=== PATIENT | male | born 1965 | race Caucasian/White ===

== ENCOUNTER → 2024-03-19 16:44 | Outpatient (REF) | payer BC, SELFPAY | LOC: REG 16:44 | PROVIDERS: ATTENDING PHYSICIAN Nurse Practitioner Adult Health; FAMILY PHYSICIAN Family Medicine | DX: M25.561 Pain in right knee (principal) | CPT/HCPCS: 73564 ==

== ENCOUNTER 2024-07-08 23:17 | Emergency (ER) | payer BC, SELFPAY ==
[2024-07-08 23:17] VITALS: BMI 34.5
[2024-07-08 23:20] VITALS: BP 184/118
[2024-07-09] LABS: Hematocrit 39.9 % (39.0-52.0); Hemoglobin 14.1 g/dL (13.0-18.0); Mean Corp Hgb Conc. 35.3 g/dL (33.0-37.0); Mean Corpuscular Hgb 30.2 pg (27.0-31.0); Mean Corpuscular Volume 85.4 fL (80.0-94.0); Platelet Count 161 10^3/uL (130-400); Red Blood Cell Count 4.67 10^6/uL (4.70-6.10); Red Cell Dist. Width 12.9 % (11.5-14.5); White Blood Cell Count 8.2 10^3/uL (4.8-10.8)
[2024-07-09 00:02] LABS: Urine Albumin 2+ (Neg - Trace); Urine Bilirubin Negative (Negative); Urine Character Slightly Cloudy (Clear); Urine Color Yellow; Urine Glucose Negative (Negative); Urine Ketone Negative (Negative); Urine Leukocyte 1+ (Negative); Urine Nitrite Negative (Negative); Urine Occult Blood 4+ (Negative); Urine Urobilinogen Negative (Neg - 1+)
[2024-07-09 00:08] LABS: Blood Urea Nitrogen 16 mg/dl (9-20); Calcium 9.5 mg/dl (8.4-10.2); Carbon Dioxide 26 mmol/L (22-30); Chloride 101 mmol/L (98-107); Glucose 132 mg/dl (70-99); Potassium 3.8 mmol/L (3.5-5.1); Sodium 140 mmol/L (135-145); eGFR > 60.00
[2024-07-09 00:21] VITALS: BP 179/99
[2024-07-09 00:30] VITALS: BP 157/97
[2024-07-09 00:35] LABS: Urine Red Blood Cell >100 /HPF (0-2)
[2024-07-09 00:40] LABS: Urine Bacteria Few (Negative)
[2024-07-09 01:00] VITALS: BP 153/92
--- NOTE | 2024-07-09 01:07 | ED.GENMED ---
History of Present Illness
General
Chief Complaint: Urinary Symptoms
Source: patient
Exam Limitations: none
Time Seen by Provider: 07/09/24 01:00
Nursing documentation reviewed up to this point in time: agreed with
History of Present Illness
History of Present Illness:
This is a 59-year-old gentleman with history of hyperlipidemia, maintained on a statin. He complains of gross hematuria that began shortly after dinner, has had 3 episodes of grossly bloody urine, initially just blood-tinged but then progressively
more bloody over the next 2 episodes he voided, most recently passing small clots. He denies dysuria, denies urinary frequency nor hesitancy and does not feel he has difficulty emptying his bladder.
He takes no anticoagulants.
No history of similar episodes in the past.
He does admit to mild back ache, denies abdominal pain, no fever nor chills.
Noted to have significantly elevated blood pressure and he reports history of 'whitecoat' syndrome with elevated blood pressure at doctor's offices but has never been formally diagnosed with hypertension and generally blood pressure normalizes upon
recheck.
Past History
Past History
ED Past Medical History: Hypercholesterolemia, Psychiatric (Anxiety during medical procedures/visits) and Other (Elevated blood pressure related to whitecoat syndrome)
ED Past Surgical History: Orthopedic (Right forearm compartment syndrome 1995)
Social History
Tobacco: Non-smoker
Alcohol: Occasional
Drug: None
Personal:
Living: with family
Employment: Employed ([employer], works for [employer])
Family History
Family History: Other (Noncontributory)
Phy Exam
Physical Exam
Physical Exam:
GENERAL: 59-year-old overweight gentleman appears his stated age, bright and alert, pleasant, appears in no acute distress. Significant hypertension noted initially, has improved to 153/92
EYE: anicteric
NECK: Supple, nontender, no meningismus, no significant adenopathy.
ENT: oral mucosa is moist. No rhinorrhea.
CARDIAC: Regular rate and rhythm. no murmur.
LUNGS: Clear breath sounds bilaterally, no acute respiratory distress, no wheezes/rales/rhonchi
ABDOMEN: Soft, nondistended, without focal tenderness, no r/g, no cvat. normoactive BS. No palpable masses.
NEUROLOGICAL: Alert and oriented x3, no focal neuro deficits. Gait is zamora and steady.
SKIN: Warm and dry, normal color, skin intact. No rash.
MUSCULOSKELETAL: No C/C/E. peripheral pulses are full and equal b/l. No palpable tenderness.
PSYCH: Normal and appropriate interaction.
Course
Orders/Labs/Results
Orders:
Orders
07/08/24 23:35
Basic Metabolic Panel Urgent
Complete Blood Count/No Diff Urgent
Urinalysis Urgent
Date Specimen was Collected: 07/08/24
Time Specimen was Collected: 23:23
Urine Microscopic Urgent
Date Specimen was Collected: 07/08/24
Time Specimen was Collected: 23:23
Urine Culture Urgent
JUAN Source: U
Specimen Description:
Date Specimen was Collected: 07/08/24
Time Specimen was Collected: 23:23
Comment: ADD ON
07/09/24 01:07
CT Abd/pelvis W Iv Cont Urgent
Comment:
Reason For Exam: acute gross hematuria; mild back pain
07/09/24 03:37
Add On - Microbiology Urgent
Tests Added?: urine c/s
Abnormal Lab Results
07/08/24
23:35
RBC 4.67 L 10^6/uL
(4.70-6.10)
MPV 11.0 H fL
(7.4-10.4)
Glucose 132 H mg/dl
(70-99)
Urine Occult Blood 4+ A
(Negative)
Ur Leukocyte Esterase 1+ A
(Negative)
Urine RBC >100 A /HPF
(0-2)
Urine Bacteria Few A
(Negative)
Urine Albumin 2+ A
(Neg - Trace)
07/08/24 23:35
07/08/24 23:35
Vital Signs
Initial and Last Documented VS:
Initial Vital Signs
Temp Pulse Resp BP Pulse Ox
97.8 F 120 24 184/118 100
07/08/24 23:20 07/08/24 23:20 07/08/24 23:20 07/08/24 23:20 07/08/24 23:20
Last Documented Vital Signs
Temp Pulse Resp BP Pulse Ox
97.8 F 96 15 157/99 69
07/08/24 23:20 07/09/24 01:00 07/09/24 01:00 07/09/24 03:23 07/09/24 01:23
MDM/Problems Addressed
Differential Diagnosis Includes:
Acute gross hematuria, concern for UTI, ureteric stone, other consideration is renal mass/bladder mass.
Thus far labs are unremarkable with normal CBC, unremarkable chemistries�normal renal function.
Urinalysis reported as yellow, slightly cloudy, greater than 100 RBCs, 3-5 WBCs, few bacteria. Not convincing for UTI.
Will check CT abdomen and pelvis.
*Radiology
Radiology exam reviewed: radiology read reviewed
*Pulse Oximetry
Patient hypoxic: no
*Critical Care Note
Total Time (30-74mins, 75-104mins- exclusive of procedures): Not Applicable
Update Note
Update Note:
03:30
Patient continues to feel well. Voiding well.
CAT scan concerning for a mass at the right bladder base measuring 1.5 x 1.6 cm, polypoid lesion in nature. There is no sign of obstruction. Kidneys are unremarkable.
Discussed finding with patient and recommend to follow-up with urology for further evaluation.
Urinalysis is not suspicious for UTI but I have sent a urine culture for completeness sake.
Discussed importance of remaining well-hydrated on a daily basis.
He continues with moderate hypertension and recommend he follow-up with PCP as well. Alternatively monitor his blood pressure at home.
ED Attending Note
-
Portions of this chart may have been created with voice recognition software.� Occasional wrong word or��sound alike� substitutions may have occurred due to the inherent limitations of voice recognition software.
Discharge Plan
Departure
Patient Disposition: Home (Routine Discharge)
Date of Disposition: 07/09/24
Time of Disposition: 03:35
Patient with high blood pressure during this ER visit?: Yes
Condition: Good
Discharge Problem:
Gross hematuria, Bladder mass
Instructions: Blood in Urine (Hematuria), Adult ED, BLOOD PRESSURE
Prescriptions:
No Action
gentamicin [Gentak] 0.3 % drops
1 drp LEFT EYE Q2H Qty: 1 0RF
Rx Instructions:
for 2 days while awake then every 4 hours for 5 days
hydrocodone-acetaminophen 5 MG/500 MG tablet
1 tab PO .Q4-6HPRN PRN (Reason: PAIN) Qty: 20 0RF
Referrals:
Essie Clayton MD [Family Provider] -
Juan Alcala MD [Active] - Call in 1-3 days for appt
Interventions
Interventions:
*Risk Screen - Suicide Last Done: 07/08/24 23:20
*General Assessment Last Done: 07/09/24 03:46
*Neglect/Abuse Screening Last Done: 07/08/24 23:20
*ED- Fall Risk Assessment Last Done: 07/09/24 03:46
*ED COVID-19 Vaccine History Last Done: 07/09/24 03:46
*Nursing Disposition Last Done: 07/09/24 03:46
ED-Male Genitourinary Assessment Last Done: 07/09/24 00:30
Discharge Date and Time
Discharge Date/Time: 07/09/24 03:48
Print Language: MALAY
[2024-07-09 03:23] VITALS: BP 157/99
== END 2024-07-09 03:48 | disposition home or self-care (01) ==
LOC: EMR 23:17
PROVIDERS: EMERGENCY PHYSICIAN Emergency Medicine; FAMILY PHYSICIAN Family Medicine
DX: N32.9 Bladder disorder, unspecified (principal); R31.0 Gross hematuria; E78.00 Pure hypercholesterolemia, unspecified; R03.0 Elevated blood-pressure reading, without diagnosis of hypertension
CPT/HCPCS: 99284; 74177; 80048; 81003; 81015; 85027; 87086; Q9967

== ENCOUNTER 2024-07-24 06:20 | Day surgery (SDC) | payer BC, SELFPAY ==
[2024-07-19 14:06] VITALS: BMI 24.9
[2024-07-24 11:23] VITALS: BMI 24.9
[2024-07-24 11:24] VITALS: BP 137/96
[2024-07-24] MEDS: CYSVIEW KIT 100 MG INTRAVES (11:40)
[2024-07-24] MEDS: NORMOSOL-R/PLASMALYTE-A 1000 IV (11:45)
[2024-07-24 17:10] VITALS: BP 121/99; BP 137/96
[2024-07-24] MEDS: SYRINGE NON-PUMP 50 ML IRRIG ×2 (17:14→17:17)
[2024-07-24] MEDS: SYRINGE NON-PUMP 50 MG IRRIG ×2 (17:14→17:17)
[2024-07-24] MEDS: VALIUM INJECTION 5 MG IV (17:29)
[2024-07-24] MEDS: DETROL LA 4 MG PO (18:01)
[2024-07-24] MEDS: Pyridium 200 MG PO (18:01)
[2024-07-24 18:20] VITALS: BP 146/87
[2024-07-24] MEDS: TORADOL 30 MG IV (18:42)
[2024-07-24 19:00] VITALS: BP 168/97
[2024-07-24 19:45] VITALS: BP 138/102
== END 2024-07-24 19:50 | disposition home or self-care (01) ==
LOC: SDS 06:20
PROVIDERS: ATTENDING PHYSICIAN Specialist; FAMILY PHYSICIAN Family Medicine
DX: C67.9 Malignant neoplasm of bladder, unspecified (principal); R31.0 Gross hematuria
CPT/HCPCS: 52235; 88305; 88307; 36415; 93005; A9589; J9201

== ENCOUNTER 2024-07-25 04:10 | Observation (INO) | payer BC, SELFPAY ==
--- NOTE | 2024-07-24 23:52 | ED.GENMED ---
History of Present Illness
General
Chief Complaint: Post Operative Problem(s)
Source: patient
Exam Limitations: none
Time Seen by Provider: 07/24/24 23:20
Nursing documentation reviewed up to this point in time: agreed with
History of Present Illness
History of Present Illness:
59-year-old male presents to the emergency department with increased pain, chills status post polypectomy of his bladder today. Patient was diagnosed with a polyp approximately 2 weeks ago. Had the polypectomy today and was discharged around [address] Alcala had offered to keep patient in the hospital but he chose to go home. Scarcely 2 hours later, he developed increased pain with the chills. They called Dr. Robles, the urologist on-call who advised him to come to the emergency
department for CAT scan.
Past History
Past History
ED Past Medical History: Hypercholesterolemia, Psychiatric (Anxiety during medical procedures/visits) and Other (Elevated blood pressure related to whitecoat syndrome)
ED Past Surgical History: Orthopedic (Right forearm compartment syndrome 1995)
Social History
Tobacco: Non-smoker
Alcohol: Occasional
Drug: None
Personal:
Living: with family
Employment: Employed (Air Conditioning Installer, works for [employer])
Family History
Family History: Other (Noncontributory)
Phy Exam
General Physical Exam
General Presentation: moderate distress and mild distress
General age: appears stated age
General Skin: warm and dry
General Habitus: normal
General Mental: alert
General Hydration: appears well hydrated
General Chronic Disability: urinary catheter (Contains chemotherapeutics)
Cardiovascular Exam
Cardiovascular Exam: regular rate/rhythm and no edema
Pulmonary Exam
Pulmonary Exam: lungs clear and no respiratory distress
Gastrointestinal Exam
Gastrointestinal Exam: normal bowel sounds, non tender and soft
Musculoskeletal Exam
Musculoskeletal Exam: full ROM
Skin Exam
Skin Exam: normal color and warm/dry
Psychiatric Exam
Psychiatric Exam: normal mood/affect
Sepsis
Sepsis Screening
Sepsis Assessment: Sepsis Ruled Out
Sepsis Screen
Sepsis Screen: Sepsis Ruled Out
Date: 07/25/24
Time: 04:32
Course
Orders/Labs/Results
Orders:
Orders
07/24/24 23:24
Cardiac Monitoring- Treatment ONCE
IV Insert/Care/Rem.- Treatment PRN
07/24/24 23:45
Morphine Sulfate 4 mg .ROUTE .STK-MED ONE
Ondansetron Injectable [Zofran] 4 mg .ROUTE .STK-MED ONE
07/24/24 23:49
Complete Blood Count/With Diff Urgent
Comprehensive Metabolic Panel Urgent
Procalcitonin Urgent
PCT Algorithmm Indication: Sepsis
Urinalysis Reflex To Culture Urgent
Date Specimen was Collected: 07/24/24
Time Specimen was Collected: 23:25
Urine Microscopic Reflex Cult Urgent
Urine Culture Urgent
JUAN Source: U
Specimen Description:
Date Specimen was Collected: 07/24/24
Time Specimen was Collected: 23:25
07/24/24 23:50
Prothrombin Time Urgent
07/25/24
CT Abd/Pel (IV only)-DH only Urgent
Reason For Exam: post operative pain
07/25/24 03:13
0.9% Sodium Chloride 1000 ml [Nss] 1,000 ml IV BOLUS
Ciprofloxacin 400 mg/[id number] [Cipro 400 mg] 200 ml IV NOW
07/25/24 03:15
Admit/Transfer Patient As Directed
Co-Sign Provider:
Level of Care: Observation services
Assign to:: Medical/Surgical
Physician / Group: hospitalist
Diagnosis: post operative pain
Code Status As Directed
Resuscitation Status: Full Code
PRN Pain Medication Management As Directed
May give lesser potent ordered pain med per pt: Yes
preference::
Protocol:: Medication orders for pain may be administered in a
manner that supports deferring to patient preference
when the pt is:
- Requesting an ordered lesser potent pain medication.
Least to most potent pain medications are defined
as: acetaminophen < NSAID < tramadol < opioids
(morphine, oxycodone, hydromorphone).
- Requesting a lesser dose of the same medication IF
ORDERED.
- Requesting a less intrusive route of administration
if both routes are prescribed by the provider (PO <
IV).
07/25/24 03:48
Ciprofloxacin 400 mg/[id number] [Cipro 400 mg] 200 ml IV NOW
07/25/24 04:00
Flush (0.9% Sodium Chloride) [Flush (Nss)] See Dose Instructions IV PER PROTOCOL
07/25/24 04:18
0.9% Sodium Chloride 500 ml [Nss] 500 ml IV 100 mls/hr
Acetaminophen [Tylenol] 650 mg PO Q4HPRN PRN
Bisacodyl [Dulcolax] 10 mg RECTAL [id number] PRN
Docusate W/Senna [Senokot-S] 1 tablet PO BIDPRN PRN
Ketorolac [Toradol] 10 mg IV Q6HPRN PRN
Morphine Sulfate 2 mg IV Q4HPRN PRN
Ondansetron Injectable [Zofran] 4 mg IV Q6HPRN PRN
Phenazopyridine HCl [Pyridium] 100 mg PO TIDPRN PRN
Polyethylene Glycol Powder [Miralax] 17 grams PO DAILYPRN PRN
07/25/24 04:18
UROLOGY CONSULT Routine
Consulting Provider: Mich Robles
Was physician already notified: Yes
Activity As Directed
Activity Level: With Assistance
Fall Catheter [Catheter- Indwelling] As Directed
Reason for insertion: Sydni-Op Remove POD #2
Comment: To be removed Aly Ann 4
Pneumatic Compression Sleeves As Directed
Type: Knee high
Vital Signs As Directed
Frequency: Per unit guidelines
DX Deep Vein Thrombosis Video Routine
07/25/24 Breakfast
Regular
07/25/24 16:00
LevoFLOXacin 500 MG/100 ML [Levaquin] 500 mg in 100 ml IV Q24H
07/25/24 22:00
Atorvastatin [Lipitor] 20 mg PO HS
Abnormal Lab Results
07/24/24
23:49
MPV 11.0 H fL
(7.4-10.4)
Absolute Neuts (auto) 9.2 H 10^3/uL
(1.4-6.5)
Absolute Lymphs (auto) 0.4 L 10^3/uL
(1.2-3.4)
Neutrophils % 92.2 H %
(42.2-75.2)
Lymphocytes % 3.6 L %
(20.5-51.1)
Glucose 189 H mg/dl
(70-99)
Urine Ketones 3+ A
(Negative)
Ur Occult Blood Reflex 4+ A
(Negative)
Urine Nitrite (Reflex) Positive A
(Negative)
Urine Bilirubin 1+ A
(Negative)
Urine Urobilinogen 2+ A
(Neg - 1+)
Leukocyte Esterase Rfl 2+ A
(Negative)
Urine RBC >100 A /HPF
(0-2)
Urine Bacteria (Reflex) Many A
(Negative)
Urine Glucose 3+ A
(Negative)
Urine Albumin (Reflex) 3+ A
(Neg - Trace)
07/24/24 23:49
07/24/24 23:49
Vital Signs
Initial and Last Documented VS:
Initial Vital Signs
Temp
98.3 F
07/24/24 23:21
Last Documented Vital Signs
Temp Pulse Resp BP Pulse Ox
98.3 F 102 18 163/106 95
07/24/24 23:21 07/25/24 00:54 07/25/24 00:54 07/25/24 04:00 07/25/24 04:00
*Radiology
Radiology exam reviewed: radiology read reviewed (CT A/P W/IV CONTRAST IMPRESSION: Mild right hydroureteronephrosis. Moderate perinephric and periureteral fat stranding. No obstructing stone. Fall catheter in the bladder. Bladder is nearly
completely emptied of fluid. There is mild bladder wall thickening that may reflect contracted bladder w)
*Pulse Oximetry
Patient hypoxic: no
*Critical Care Note
Total Time (30-74mins, 75-104mins- exclusive of procedures): Not Applicable
ED Attending Note
-
Portions of this chart may have been created with voice recognition software.� Occasional wrong word or��sound alike� substitutions may have occurred due to the inherent limitations of voice recognition software.
Discharge Plan
Departure
Patient Disposition: Admit
Date of Disposition: 07/25/24
Time of Disposition: 02:51
Admit to: Med/Surg
Presentation/result/management discussed w/ accepting MD/DO: Hospitalist
Discharge Problem:
Post-operative pain
Interventions
Interventions:
*Risk Screen - Suicide Last Done: 07/24/24 23:12
*General Assessment Last Done: 07/24/24 23:58
*Neglect/Abuse Screening Last Done: 07/24/24 23:12
*ED- Fall Risk Assessment Last Done: 07/24/24 23:58
*ED COVID-19 Vaccine History Last Done: 07/24/24 23:58
ED- Neurological Assessment Last Done: 07/24/24 23:58
ED-Skin Assessment Last Done: 07/24/24 23:58
[2024-07-24 23:57] VITALS: BMI 34.3
[2024-07-24 23:59] LABS: % Basophils 0.1 % (0-2); % Immature Granulocytes 0.2 % (0-0.5); % Lymphocytes 3.6 % (20.5-51.1); % Monocytes 3.9 % (1.7-9.3); % Neutrophils 92.2 % (42.2-75.2); Absolute Lymphocytes 0.4 10^3/uL (1.2-3.4); Absolute Monocytes 0.4 10^3/uL (0.1-0.6); Absolute Neutrophils 9.2 10^3/uL (1.4-6.5); Hematocrit 40.7 % (39.0-52.0); Hemoglobin 14.4 g/dL (13.0-18.0); Mean Corp Hgb Conc. 35.4 g/dL (33.0-37.0); Mean Corpuscular Hgb 30.5 pg (27.0-31.0); Mean Corpuscular Volume 86.2 fL (80.0-94.0); Nucleated Red Blood Cells % 0 % (-); Platelet Count 157 10^3/uL (130-400); Red Blood Cell Count 4.72 10^6/uL (4.70-6.10); Red Cell Dist. Width 12.5 % (11.5-14.5)
[2024-07-25] VITALS (12 sets, daily range): BP systolic 143–188; BP diastolic 82–112
[2024-07-25 00:02] LABS: Urine Albumin 3+ (Neg - Trace); Urine Bilirubin 1+ (Negative); Urine Character Cloudy (Clear); Urine Color Yellow; Urine Glucose 3+ (Negative); Urine Ketone 3+ (Negative); Urine Leukocyte 2+ (Negative); Urine Nitrite Positive (Negative); Urine Occult Blood 4+ (Negative); Urine Urobilinogen 2+ (Neg - 1+)
[2024-07-25 00:15] LABS: INR 1.05
[2024-07-25 00:19] LABS: ALT (SGPT) 28 U/L (0-50); AST (SGOT) 24 U/L (17-59); Albumin 4.3 g/dl (3.5-5.0); Alkaline Phosphatase 74 U/L (38-126); Blood Urea Nitrogen 15 mg/dl (9-20); Calcium 9.1 mg/dl (8.4-10.2); Carbon Dioxide 25 mmol/L (22-30); Chloride 104 mmol/L (98-107); Estimated Creatinine Clearance 100 ml/min; Glucose 189 mg/dl (70-99); Potassium 4.5 mmol/L (3.5-5.1); Sodium 138 mmol/L (135-145); Total Bilirubin 0.9 mg/dl (0.2-1.3); Total Protein 7.1 g/dl (6.3-8.2); eGFR > 60.00
[2024-07-25 00:28] LABS: Urine Red Blood Cell >100 /HPF (0-2)
[2024-07-25 00:29] LABS: Urine Bacteria Many (Negative)
[2024-07-25 00:36] LABS: Procalcitonin < 0.05 ng/ml (0.0-0.25)
--- NOTE | 2024-07-25 03:04 | HPS.HSE ---
Family Physician
-
Family Physician: Essie Clayton
Chief Complaint
-
Abdominal pain
History of Present Illness
This is a 59-year-old woman with past medical history of hyperlipidemia and is postop day #0 status post cystoscopy with polypectomy who presents to the emergency department with postoperative pain.
Patient had a scheduled procedure that was uneventful. He had resection of bladder polyps and [facility] for malignant evaluation. Patient was discharged home. On arrival at home initially he was asymptomatic. However after he had a small soup and
went to bed he developed abdominal pain and then right-sided flank pain with some nausea. He also reported that the pain was radiating to his back. He denied having fevers or chills at home. He reported that he had some expected gross hematuria
from his urinary catheter but was not having any ureteral pain.
In the emergency department he was afebrile, blood pressure was stable at 180/100 with a pulse of 109 and he was satting 98% on room air. Temperature was 98.3. CBC was unremarkable with a white count of 10 mg of 14 and platelet of 157.
Electrolytes BUN and creatinine were all normal. UA was positive with bacteria leukocyte esterase nitrites and some blood. CT of the pelvis shows mild right hydroureteronephrosis, moderate perinephric and periureteral fat stranding, no obstructing
stone, Fall catheter in the bladder with the bladder nearly completely emptied of fluid
Medical History
Past Medical History
Past Medical History: Reports Hypercholesterolemia
Past Surgical History: Reports Orthopedic
Social History
Tobacco: Non-smoker
Alcohol: Occasional
Drug: None
Personal:
Living: With Family
Employment: Employed
Family History
Family History: Not pertinent
Allergies / Home Medications
Allergies reflects when Allergies were last updated in [facility].
Home Medications with original date entered in [facility]
Allergy/Medication List:
Allergies
Allergy/AdvReac Type Severity Reaction Status Date / Time
Penicillins Allergy Swelling/Hi Verified 04/01/25 23:15
ves
Home Medications
atorvastatin 20 mg tablet 20 mg PO HS 07/20/24
multivitamin 1 tab PO DAILY 07/20/24
Review of Systems
-
History Source: Patient
Constitutional: Reports No Symptoms
EENT: Reports No Symptoms
Respiratory: Reports No Symptoms
Cardiac: Reports No Symptoms
Abdomen/GI: Reports Abdominal Pain
: Reports Flank Pain
Musculoskeletal: Reports No Symptoms
Skin: Reports No Symptoms
Neurological: Reports No Symptoms
Endocrine: Reports No Symptoms
Hematologic/Lymphatic: Reports No Symptoms
Psych: Reports No Symptoms
Physical Exam
Vital Signs
Vital Signs
Temp Pulse Resp BP Pulse Ox
98.3 F 102 18 173/110 94
07/24/24 23:21 07/25/24 00:54 07/25/24 00:54 07/25/24 02:00 07/25/24 02:15
Physical Exam
General: Well Developed, Well Nourished, No Apparent Distress and Comfortable
HEENT: NormoCephalic, Anicteric, Moist mucous membranes and Atraumatic
Respiratory: Clear
Cardiac: S1/S2 and Regular Rhythm
Breast: Deferred by me
GI: Soft, Non Tender, Non Distended and Normal Bowel Sounds
Rectal: Deferred by Provider
Genito-urinary: Clear Urine and Fall
Musculoskeletal: No Clubbing, No Cyanosis and No Edema
Skin: Warm
Neuro: AO x 3 and Nonfocal/grossly intact
Hematologic/Lymphatic: No Lymphadenopathy
Psych: Calm
Laboratory Results
-
07/24/24 23:49
07/24/24 23:49
Laboratory Results
PT 14.0 Sec (11.4-14.6) 07/24/24 23:50
INR 1.05 04/01/25 23:50
Total Bilirubin 0.9 mg/dl (0.2-1.3) 07/24/24 23:49
AST 24 U/L (17-59) 07/24/24 23:49
ALT 28 U/L (0-50) 07/24/24 23:49
Alkaline Phosphatase 74 U/L (38-126) 07/24/24 23:49
Data Reviewed
-
CT Scan: Report Reviewed by me
Lab Data: Labs Reviewed by me
Old Records: Reviewed
Impression/Plan
-
IMPRESSION:
59-year-old who is postop day 0 status post cystoscopy with polyp resection coming into the emergency department postprocedure with abdominal and right-sided flank pain. No fevers or chills. He has no leukocytosis. Renal function is stable with
creatinine of 1.0. He is otherwise well-appearing and hemodynamically stable. The CT scan is negative for all perforated viscus, hydronephrosis or ureteral nephrosis. Growing from the urinary cath clear yellow. The UA expectedly shows blood,
pyuria, bacteriuria and nitrites and leukocyte esterase. Urine without gross hematuria and color c/w Pyridium given.
PLAN:
1. Post op pain -postop pain without clear demonstrable etiology that is new. He has no hydronephrosis. He has no overt perforated viscus. No other urogenital genital obstruction. An infection cannot be ruled out entirely given the positive UA
but her urinalysis is to be expected postoperatively.
- admit to med/surg observation
- pain control and anti-emetics
- urine cultures sent
- blood cultures if spike and start more broad spec abx
- for now will continue levofloxacin 500mg iv q 24 hours, got last dose 4pm prior to procedure.
- diet as tolerated for now
- 1.5 L NS fluids overnight
- catheter to be removed on July 27
- urology consult
DVT PPX - SCD
Code status - Full code
[2024-07-25] MEDS: CIPRO 400 MG 200 IV (04:05)
[2024-07-25] MEDS: NSS 1000 IV (04:09)
[2024-07-25] MEDS: FLUSH (NSS) 1 FLUSH IV (04:17)
[2024-07-25] MEDS: NSS 500 IV (05:14)
--- NOTE | 2024-07-25 07:32 | CONS.URO ---
Consultation
-
Date/Time Consultation Requested: 07/25/24
Date/Time Consultation Performed: 07/25/24
Requesting Provider: ED
Performing Provider: Travis
Reason for Consultation: right flank pain and fevers/chills s/p TURBT
Medical History
History of Present Illness
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 Alcala on 07/24/24 - procedure uncomplicated.
Due to expected urethral pain and post-op right flank pain noted by patient in PACU, admission was discussed and advised by Dr. Alcala (spouse in agreement) - patient wished to go home.
Per spouse, patient deferred taking any additional post-op PO analgesics in PACU prior to discharge.
Called Urology answering service late in evening on 07/24 w/ fevers/chills and severe right flank pain - improved w/ cold compress.
OF NOTE - patient's spouse endorses patient had ongoing right flank pre-dating surgery in last few weeks.
Past Medical History
Past Medical History: Hypercholesterolemia
Past Surgical History: Orthopedic and Urological (TURBT 07/24/24)
Social History
Tobacco: Non-smoker
Alcohol: Occasional
Drug: None
Personal:
Living: With Family
Employment: Employed
Family History
Family History: Reviewed & Not Pertinent
Allergies/Home Medications
Allergies
Allergy/AdvReac Type Severity Reaction Status Date / Time
Penicillins Allergy Swelling/Hi Verified 07/25/24 03:16
ves
Home Medications
�Medication �Instructions �Recorded �Confirmed �Type
atorvastatin 20 mg tablet 20 mg PO HS 07/20/24 07/24/24 History
multivitamin 1 tab PO DAILY 07/20/24 07/24/24 History
Review of Systems
-
History Source: Patient
A 12 point Review of Systems was completed except as noted: Yes
Physical Exam
Vital Signs
Vital Signs
Temp Pulse Resp BP Pulse Ox
98.3 F 102 18 172/86 95
07/24/24 23:21 07/25/24 00:54 07/25/24 00:54 07/25/24 07:00 07/25/24 04:13
Lab / Testing Results
Laboratory Results
07/24/24 23:49
07/24/24 23:49
Physical Exam
General: No Apparent Distress
HEENT: Normocephalic and Anicteric
Respiratory: Non Labored Respirations
Cardiac: Regular Rhythm
Breast: N/A
GI: Soft, Non Tender and Non Distended
Rectal: Deferred by Provider
Genito-urinary: Clear Urine
Neuro: AO x 3
Psych: Calm and Intact Judgement
Assessment / Plan
-
Right renal colic
Mild right hydroureteronephrosis w/ perinephric stranding
s/p TURBT 07/24
WBC 10
H/H stable
Cr 1.0
CTAP w/ IV contrast => mild right hydroureteronephrosis w/ perinephric + periureteral fat stranding, decompressed bladder w/ catheter balloon.
- No indication for uro-surgical intervention - diet OK
- admitted for analgesics and IVF hydration
- maintain Fall catheter to drainage (voiding trial originally planned 07/27)
- IV Levaquin, UCx pending
D/w ED.
D/w Hospitalist.
Data Reviewed
-
Total Time Spent with Patient (in minutes): 55
CT Scan: Image personally visualized and interpreted, Report Reviewed by Me and Discussed with Physician
Lab Data: Labs Reviewed and Discussed with Physician
Old Records: Reviewed
--- NOTE | 2024-07-25 08:53 | W.PN.UPDATE ---
Update Note
Progress Note Update
pt free of pain x 6 hours creatinine at baseline if stable home this afternoon on ansaids
--- NOTE | 2024-07-25 11:14 | W.PN.UPDATE ---
Update Note
Progress Note Update
H&P from 0304 this morning. I have independently evaluated the patient at the bedside today. I have reviewed all available documentation and records.
59-year-old male with dyslipidemia, obesity, right bladder wall tumor s/p TURBT on 07/24/2024 that presented to the ED with right-sided flank pain. Had procedure performed yesterday, returned home and then developed right-sided cramping abdominal
pain. Symptoms associated with some nausea, some radiation of pain to his back. Denies fevers or chills, had expected postprocedural hematuria. AFVSS to course here. CT A/P with mild to moderate right hydroureteronephrosis and moderate
perinephric edema, inflammatory fat stranding of the right kidney and proximal ureter. CT without signs of ureterolithiasis. Received IV fluids. Was continued on oral antibiotic regimen with Fall catheter in place as per urology recommendations.
Right ureteral colic. Suspected to be provoked by postprocedural inflammation. Has symptomatically improved and as of this morning has no pain. Evaluated by urology. Recommended discharge after lunch if he remains asymptomatic. Will continue
levofloxacin and maintain Fall catheter as per urology's postprocedural recommendations. Will need follow-up in office, TOV planned on 07/27. Start as needed NSAIDs and Tylenol
Likely discharge home today
--- NOTE | 2024-07-25 12:00 | PTCARENOTE ---
Pt arrived from ED with Fall Catheter in place. AAOx3 ambulated to bathroom to empty Fall and then ambulated to bed stand by assist. Pt requesting Ibuprofen said he 'never got it downstairs' for 3/10 R flank pain. Pt assessed penile tip with
bloody drainage MD made aware new stat-lock applied. Pt stated 'I am going to rest I have not slept all night' call bhat within reach VSS. Pt with orders for discharge MD aware pt awaiting ride home. Pt offers no further complaints at this time.
[2024-07-25] MEDS: MOTRIN 600 MG PO (12:26)
--- NOTE | 2024-07-25 15:23 | CM ---
Reviewed the chart notes. Patient discharged to home prior to CM being able to assess patient.
--- NOTE | 2024-07-25 16:42 | W.DCSUMMARY ---
Discharge Summary
Discharge Data
Date of Admission: 07/25/24
Date of Discharge: 07/25/24
Total time spent discharging patient (in min): 35
-
Pending Results: No
Hospital Course
59-year-old with anxiety, dyslipidemia, POD #0 from TURBT for right bladder tumor resection that presented to the hospital due to right abdominal pain. Symptoms started after he returned home from his TURBT. Crampy right lower quadrant pain,
persistence but him to come back to the ED. Was evaluated by urology, suspicion high for right ureteral colic secondary to postoperative inflammation from his TURBT. Was continued on oral ciprofloxacin, started on phenazopyridine. Symptomatically
improved and was transition from IV to oral NSAIDs. Evaluated by Dr. Alcala from urology who recommended discharge and outpatient follow-up. To continue oral ciprofloxacin course as previously directed by urologist. To follow-up in office with
urology on Thursday 07/27 for trial of void. Prescription sent for phenazopyridine and prescription strength ibuprofen.
Discharge Plan
-
Patient Disposition: Home (Routine Discharge)
Discharge Diagnosis/Procedures: Right ureteral colic
Status post TURBT
Postprocedural hematuria
Condition: Good
Diet: No restrictions
Activity: As tolerated
Additional Activity: Follow postprocedural recommendations as given by urology
Driving Restrictions: As prior to admission
Bathing Restrictions: None
Blood Work: BMP and CBC in 1 week
Activity Restrictions/Additional Instructions:
After discharge from the hospital schedule follow-up appointment with your family doctor. Should be seen in the office within 1 to 2 weeks of your discharge
Contact urologist office to schedule follow-up appointment for trial of void/Camara catheter removal
Instructions: Flank pain
Referrals:
Essie Clayton MD [Family Provider] -
Juan Alcala MD [Active] - (call dr alcala [phone] if problems arrive tuesday but call today to schedule removal camara and call next week dalia for pathology report )
Additional Discharge Medication Instructions: Use ibuprofen 600 mg as needed up to 4 times daily (every 6 hours) for pain from your ureteral colic
Use phenazopyridine 100 mg up to 3 times daily as needed for urinary burning associated with your recent procedure (this may turn your urine orange
Continue ciprofloxacin 500 mg every 12 hours as directed by your urologist
Prescriptions:
New
ibuprofen 600 mg Tablet
600 mg PO Q6HPRN PRN (Reason: pain) 7 Days Qty: 30 0RF
phenazopyridine 100 mg Tablet
100 mg PO TIDPRN PRN (Reason: bladder/urethtral discomfort) 7 Days Qty: 20 0RF
Continued
atorvastatin 20 mg Tablet
20 mg PO HS
multivitamin Tablet
1 tab PO DAILY
ciprofloxacin HCl 500 mg tablet
500 mg PO Q12H
buspirone 7.5 mg tablet
7.5 mg PO BIDPRN PRN (Reason: anxiety)
Discharge Orders:
Discharge Patient (As Directed); Ordered 07/25/24
Ordered By: Guilherme Cerda
Discharge Date and Time
Discharge Date/Time: 07/25/24 15:22
Print Language: [place]
== END 2024-07-25 15:22 | disposition home or self-care (01) ==
LOC: 2 NORTH 04:10
PROVIDERS: ADMITTING PHYSICIAN Internal Medicine; ATTENDING PHYSICIAN Internal Medicine; CONSULT PHYSICIAN Surgery; EMERGENCY PHYSICIAN Student in an Organized Health Care Education/Training Program; FAMILY PHYSICIAN Family Medicine
DX: N13.30 Unspecified hydronephrosis (principal); G89.18 Other acute postprocedural pain; R50.9 Fever, unspecified; E78.00 Pure hypercholesterolemia, unspecified; F41.9 Anxiety disorder, unspecified; R03.0 Elevated blood-pressure reading, without diagnosis of hypertension; E78.5 Hyperlipidemia, unspecified; R31.0 Gross hematuria; R82.81 Pyuria; R82.71 Bacteriuria; R10.31 Right lower quadrant pain; Z88.0 Allergy status to penicillin
CPT/HCPCS: 74177; 80053; 81003; 81015; 84145; 85025; 85610; 87086; 99285; G0378; Q9967